=== PATIENT | male | born 1985 | race Caucasian/White ===

== ENCOUNTER 2024-11-22 13:39 | Inpatient (IN) | payer OTHER ==
[~2024-11-22] VITALS: Wt 73.7 kg
[2024-11-22] MEDS ORDERED: Ondansetron 4 MG SoluTab MM PRN (14:15)
[2024-11-22] MEDS ORDERED: Polyethylene Glycol 3350 17 gm PO PRN (14:15)
[2024-11-22] MEDS ORDERED: Aluminum Hydroxide 320MG/5ML 473 ML PO PRN (14:20)
[2024-11-22 14:52] VITALS: BP 144/84
[2024-11-22 15:17] VITALS: BP 144/84
[2024-11-22] MEDS ORDERED: PRAZ5 PO (16:20)
[2024-11-22] MEDS ORDERED: OLAN5 PO (16:20)
[2024-11-22] MEDS ORDERED: CYCL10 PO (16:22)
[2024-11-22] MEDS ORDERED: ALPR1 PO (16:22)
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
[2024-11-22 19:52] VITALS: BP 135/90
--- NOTE | 2024-11-23 04:51 | NUR ---
SHIFT SUMMARY: PATIENT WAS SITTING IN THE DAYROOM WATCHING TELEVISION AND TALKING WITH MALE PEER AT THE BEGINNING OF THE SHIFT. HE WAS ABLE TO ANSWER ICE SELLER QUESTIONS IN A MOSTLY LOGICAL AND LINEAR MANNER. HE STATED, "I NEED XANAX. I CAN'T TAKE CLONAZEPAM OR LORAZEPAM BECAUSE THEY PROCESS DIFFERENTLY IN THE LIVER, AND IT ATTACHES TO A CY ENZYME THAT I'M MISSING." PATIENT REFUSED CLONAZEPAM, AND BEGAN TO GET UPSET THAT HE DID NOT HAVE XANAX. DR WAS CONTACTED AND PATIENT GOT AN ORDER FOR LORAZEPAM 1 MG PO QD PRN ANXIETY. HE STATED THAT HE "CAN TAKE ATIVAN, I JUST CAN'T TAKE LORAZEPAM OR CLONAZEPAM." IT WAS NOT THE RIGHT MOMENT TO GIVE MEDICATION EDUCATION. PATIENT DID NOT CHOOSE TO TAKE HIS ATIVAN LAST NIGHT AT ANY RATE, AND INSTEAD REQUESTED AND WAS GIVEN ZYPREXA FOR AGITATION WITH A MASS SCORE OF 5. HE ALSO REQUESTED AND WAS GIVEN A FLEXERIL WITH GOOD EFFECT. HE DENIED SUICIDAL IDEATION WHILE HERE, ALTHOUGH HE STATED, "I PLAN TO ASK FOR ASSISTED SUICIDE. I'VE ALREADY ASKED TO THE WAY THEY KILL PEOPLE ON ROW. 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 HE DID CONTRACT FOR SAFETY WHILE HERE ON THE [facility]. HE DENIED THOUGHTS OF SELF HARMING, AND A/V/T HALLUCINATIONS. HIS BIG CONCERN IS "HOUSING". HE LIVES WITH HIS SISTER, "BUT I'M NOT CONTRIBUTING ANYTHING" HE STATED. HE PARTICIPATED IN SNACK AND WRAP UP GROUP, AND WAS COMPLIANT WITH EVENING MEDICATIONS. HE WENT TO BED SHORTLY AFTER SNACK AND WAS NOTED TO BE RESTING QUIETLY WITH EYES CLOSED AND RESPIRATIONS CONFIRMED FOR THE REMAINDER OF THE SHIFT. CONTINUING TO MONITOR FOR SAFETY WITH Q15 MINUTE CHECKS.
[2024-11-23 07:52] LABS: CHOL/HDL RATIO 3.3; Cholesterol 186 mg/dL (50-200); HDL Cholesterol 56 mg/dL (>39); LDL/HDL RATIO 1.8; Low Density Lipoprotein Chol 103 mg/dL (0-110); Triglycerides 133 mg/dL (30-140); Very Low Density Lipoprot Chol 26 mg/dL (6-28)
[2024-11-23 08:52] VITALS: BP 131/81
[2024-11-23] MEDS ORDERED: Multivitamins 1 Tab PO SCH (09:00)
--- NOTE | 2024-11-23 16:49 | NUR ---
SHIFT SUMMARY PATIENT IS AOX4. PRESENTS SAD AND COMPLIANT WITH TREATMENT. HAS ATTENDED ALL GROUPS AND MEALS. CONTINUES TO ENDORSE SI WITHOUT PLAN. PER PT, "WHAT WOULD BE THE POINT. I WOULDN'T BE ABLE TO DO IT HERE ANYWAY." PT DENIES HI AND AVTH. PT SEEMS TO BE INTERACTING WELL WITH STAFF AND PEERS. RECEIVED PRN DOSE OF ATIVAN AT 1050 WITH GOOD EFFECT. CONTINUES TO BE MONITORED WITH 15 MINUTE ROUNDS FOR SAFETY AND CARE.
[2024-11-23 21:47] VITALS: BP 123/85
--- NOTE | 2024-11-24 00:16 | NUR ---
MID SHIFT SUMMARY PT AA&O TO PERSON, PLACE, TIME, AND SITUATON. SPEECH IS ORGANIZED ND APPROPRIATE. EYE CONTACT IS GOOD. THIS RN COMMENTED TO PATIENT ON HOW MUCH BRIGHTER HE LOOKED THAN YESTERDAY. PT REPORTED HE IS FEELINH MUCH BETTER. HE REPORTS THAT HAVING THREE MEALS AND NOT BEING AROUND PEOPLE WHO ARE HIGH ON DRUGS HAS MADE A DIFFERENCE. HE IS COMPLIANT WITH MEDICATIONS AND DENIES ANY ADVERSE EFFECTS. HE REQUESTED MELATONIN FOR SLEEP AND IS CURRENTLY RESTING IN BED EYES CLOSED RR EVEN AND UNLABORED.
--- NOTE | 2024-11-24 04:16 | NUR ---
SHIFT SUMMARY AT 0030 ASSUMED CRE OF PT OTHER NURSE WENT HOME. PT HAS BEEN SLEEPING THE WHOLE TIME. RR EVEN AND UNLABORED. WILL CONTINUE TO MONITOR Q 15 MINUTES PER PROTOCOL. SEE PREVIOUS NURSE'S NOTE.
[2024-11-24 09:07] VITALS: BP 127/78
--- NOTE | 2024-11-24 17:43 | NUR ---
SHIFT SUMMARY PT HAS HAD A GOOD DAY, HE HAS BEEN UP AND ENGAGED IN THE [place]IE[place] ALL SHIFT. COMPLIANT WITH MEDICATION, PT INITALLY DENIED SI/HI/AVH HOWEVER LATER IN DAY ON FOLLOW UP WITH HIM HE VERBALIZED THAT HE DENIES INTENT AT THE MOMENT BUT IF HE WAS NOT HERE HE WOULD DEFINATLEY ATTEMPT SI. HE IS ORIENTED TO PERSON, PLACE AND TIME, REPORTS FEELING GOOD, GOOD SLEEP, SPEECH IS CLEAR, APPEARANCE IS DECENT. PT HAS RECEIVED CONTINUOUS Q15 MIN SAFETY CHECKS THIS SHIFT
[2024-11-24 20:54] VITALS: BP 130/86
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
[2024-11-25 07:57] VITALS: BP 110/73
--- NOTE | 2024-11-25 17:34 | NUR ---
SHIFT SUMMARY PT HAS BEEN UP FOR ALL OF THIS SHIFT, ATTENDING MEALS/SNACKS AND HAS BEEN IN THE TV ROOM MOST OF THE DAY. HE HAS HAD A SHOWER, APPEARS WELL KEPT, IS VERY COOPERATIVE WITH HIS CARE, CLEAR SPEECH, MEDICATION COMPLIANT, DENIES SI/HI/AVH HOWEVER HE STATES COULD PROBABLY HARM HIMSELF IF HE WERE NOT HERE AT [facility]. PT REQUESTED PRN ATIVAN 2MG AT 0840 FOR 7/10 ANXIETY LEVEL THAT REDUCED TO HIS STATED 3/10 AND WAS TOLERABLE. HE ALSO RECEIVED FLEXARIL TWICE AT 1230 & 1520 FOR GENERAL MUSCLE PAIN/ACHE. PT DID RECEIVED Q15 MIN VISUAL SAFETY CHECKS ALL SHIFT
[2024-11-25 20:50] VITALS: BP 131/86
--- NOTE | 2024-11-26 04:37 | NUR ---
Patient is very pleasant and alert and oriented times four. He is friendly and supportive with his peers in the milieu. Affect is happy and relaxed. Hygiene is good. Showered during day shift. Ate snack and spent the evening in the day room watching a movie. Denied SI,HI and AVTH during evening assessment. Will continue close observation every 15 minutes for safety and comfort.
--- NOTE | 2024-11-26 14:44 | NUR ---
MID SHIFT SUMMARY PT IS VERY PLESANT AND HAS BEEN UP ALL SHIFT, INVOLVED AND ENGAGED IN THE MILIEU, DENIES SI/HI/AVH AT THIS TIME, GOOD EYE CONTACT, VERY COOPERATIVE AND POLITE, ALERT AND ORIENTED. HE WILL START REMRON AT BEDTIME, HE DID HAVE HIS PRN ATIVAN TODAY ALONG WITH TWO DOSES OF FLEXERIL. HE HAS COMPLAINED OF CONSTIPATION, HE RECEIVED A SECOND DOSE OF MIRALAX TODAY AFTER THE DOSE YESTERDAY DID NOT HELP. PT HAS RECEIVED Q15 MIN SAFETY CHECKS THROUGHOUT SHIFT
--- NOTE | 2024-11-26 18:22 | NUR ---
ASSUMED PT CARE @1500. REPORT FROM KATHERINE MALONE. NO CLINICAL CHANGES. WILL CONTINUE POC UNTIL SHIFT CHANGE
[2024-11-26 20:42] VITALS: BP 142/82
--- NOTE | 2024-11-26 23:01 | NUR ---
Patient was given Flexaril 10mg per his request for back strain (chronic)
--- NOTE | 2024-11-27 04:00 | NUR ---
Patient is pleasant and cooperative with his peers and staff. He is A&OX4. Took his medications including new med Remeron without difficulty. Active in the milieu. He stayed up until lights out, then has slept well overnight. Denied SI, HI and AVTH during evening assessment. Will continue close monitoring every 15 minutes for comfort and safety.
[2024-11-27 09:00] VITALS: BP 128/81
--- NOTE | 2024-11-27 17:41 | NUR ---
SHIFT SUMMARY PATIENT AOX4 AND COOPERATIVE WITH CARE. ATTENDED ALL GROUPS AND MEALS. INTERACTED WITH STAFF AND PEERS APPROPRIATELY. PATIENT RECEIVED HIS PRN DOSE OF ATIVAN AT 1038 AND FLEXARIL AT 0829 & 1235. PATIENT RECEIVED AN ADDITIONAL ONE TIME DOSE OF ATIVAN FOR ANXIETY AT 1521. CONTINUES TO BE MONITORED Q15 MINUTES FOR SAFETY
[2024-11-27 20:24] VITALS: BP 137/93
--- NOTE | 2024-11-28 04:41 | NUR ---
Patient is alert and oriented times four. He is pleasant and cooperative with staff and peers. When asked how he was doing in the evening, he stated he had "had a bad morning but was doing well now". Patient denies SI,HI and AVTH during evening assessment. HE stayed up until HS in dayroom watching a movie and enjoyed snacks before going to bed. Will continue close monitoring every 15 minutes for safety and comfort.
[2024-11-28 09:05] VITALS: BP 146/79
[2024-11-28] MEDS ORDERED: MELA3 PO (10:55)
[2024-11-28] MEDS ORDERED: HYDHCL25 PO (10:55)
[2024-11-28] MEDS ORDERED: MIRT15 PO (10:56)
[2024-11-28] MEDS ORDERED: TRAZ50 PO (10:57)
--- NOTE | 2024-11-28 10:57 | NUR ---
IMPORTANT DISCHARGE INFORMATION PATIENT TO BE DISCHARGE TODAY. [facility] WILL BE PICKING HIM UP AROUND 1:30PM. HE LIVES AT [address] [facility]. IN [place]. HE HAS READY [facility] TO GET HIM AROUND 1:30PM. THERE PHONE NUMBER IS [phone]. HE HAS APPOINTMENTS IN PLACE FOR: SALONI KAUR FOR Wednesday12/08/[address] HWANG ON WEDNESDAY. 12/07/24 AT 3:45 PM. 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 COMMUNITY SUPPORT FOR GROUPS.
--- NOTE | 2024-11-28 15:06 | NUR ---
dISCHARGE 1455 THIS PATIENT WAS DISCHARGED TO HOME TODAY. TRANSPORTATION WAS ARRANGED. PATIENT REVIEWED THE DISCHARGE PAPERWORK AND SIGNED. ALL BELONGINGS WERE RETURNED TO THE PATIENT. MEDICATIONS WERE FAXED TO [facility] AND PICKED UP FOR THE PATIENT. SAFETY PLAN WAS CONSTRUCTED AND SIGNED BY THE PATIENT AND HE HAD NO THOUGHTS OF SUICIDE TODAY.
--- NOTE | 2024-11-28 15:10 | NUR ---
SHIFT SUMMARY/DISCHARGE NOTE PT AxOx4. PLEASANT AND COOPERATIVE WITH CARE. PT IS DISCHARGING HOME TO [place] TODAY. HE HAS BEEN FOLLOWING HIS TREATMENT PLAN INCLUDING TAKING MEDICATIONS PRESCRIBED, ATTENDING [facility] THERAPY GROUPS AND MINGLING APPROPRIATELY WITH PEERS/STAFF. DISCUSSED DC INSTRUCTIONS WITH PATIENT INCLUDING FOLLOW UP MH APPOINTMENT INFO, DC MEDICATION LIST AND PATIENT EDUCATION ON DIAGNOSES AND NEW MEDS. RX'S FAXED TO [facility] IN [place]. RAILROAD INSPECTOR, RN PICKED UP MEDS PRIOR TO DC. MEDS VERIFIED WITH THIS RN BEFORE GIVEN TO PATIENT. SAFETY PLAN COMPLETED WITH THIS RN. BELONGINGS RETURNED. PT'S TRANSPORT ARRIVED AT 1455 WHEN HE WAS SAFELY ESCORTED OUT WITH THIS RN.
== END 2024-11-28 14:55 | disposition home or self-care (01) | DRG 885 ==
LOC: BHU 13:39
PROVIDERS: ADMIT Psychiatry & Neurology Psychiatry
DX: F33.2 Major depressive disorder, recurrent severe without psychotic features (principal); R45.851 Suicidal ideations; Z88.6 Allergy status to analgesic agent; Z88.1 Allergy status to other antibiotic agents; Z88.8 Allergy status to other drugs, medicaments and biological substances; Z79.899 Other long term (current) drug therapy
CPT/HCPCS: 36415; 80061; 83036; A9270